=== PATIENT | male | born 1960 | race Two or more races ===

== ENCOUNTER 2021-01-04 23:48 | Emergency (ER) | payer MEDICAID, OTHER ==
[~2021-01-04] VITALS: Ht 165.1 cm; Wt 95.3 kg
[2021-01-05 01:25] LABS: Basophils # (auto) 0.1 10 ^3/uL (0-0.2); Basophils % (auto) 0.5 % (0.0-2.0); Eosinophils # (auto) 0.1 10 ^3/uL (0-0.8); Eosinophils % (auto) 0.9 % (0.0-7.0); Hematocrit 47.3 % (41.0-53.0); Hemoglobin 16.1 g/dL (13.5-17.5); Lymphocytes # (auto) 2.5 10 ^3/uL (0.4-5.4); Mean Corpuscular Hemoglobin 32.8 pg (28.0-32.0); Mean Corpuscular Volume 96.5 fL (80.0-100.0); Monocytes # (auto) 0.8 10 ^3/uL (0-1.3); Monocytes % (auto) 6.4 % (0.0-12.0); Neutrophils # (auto) 9.5 10 ^3/uL (1.6-8.6); Neutrophils % (auto) 73.2 % (37.0-80.0); Nucleated Red Blood Cells % 0.1 %; Red Cell Distribution Width 17.5 % (11.8-14.3)
[2021-01-05] MEDS ORDERED: SODIUM CHLORIDE 0.9% 3,000 ML IV ONE (01:30)
[2021-01-05 01:43] LABS: Albumin 3.8 g/dL (3.4-5.0); Calcium 8.5 mg/dL (8.5-10.1); Potassium 3.9 mmol/L (3.5-5.1)
[2021-01-05 01:45] LABS: BUN/Creatinine Ratio 13.1
[2021-01-05 01:52] LABS: Bilirubin, Total 0.4 mg/dL (0.2-1.0); Total Protein 7.8 g/dL (6.4-8.2)
[2021-01-05] MEDS ORDERED: HYDROmorphone HCL 2 MG/ML VL IV ONE (04:15)
[2021-01-05] MEDS ORDERED: ONDANSETRON HCL 4 MG/2 ML VIAL ONE (04:19)
[2021-01-05 04:22] VITALS: BP 127/81
== END 2021-01-05 04:45 | disposition short-term general hospital (02) ==
LOC: EDBD 23:48 → ER 23:56
DX: S22.20XA Unspecified fracture of sternum, initial encounter for closed fracture (principal); M12.9 Arthropathy, unspecified; F10.129 Alcohol abuse with intoxication, unspecified; V43.62XA Car passenger injured in collision with other type car in traffic accident, initial encounter; Y93.89 Activity, other specified; Y92.89 Other specified places as the place of occurrence of the external cause; Y99.8 Other external cause status; Y90.8 Blood alcohol level of 240 mg/100 ml or more
CPT/HCPCS: 36415; 70450; 71250; 72125; 74176; 80053; 80320; 85025; 96361; 96374; 99285; J1170; J2405; J7030